=== PATIENT | female | born 2005 | race African-American/Black ===

== ENCOUNTER 2024-04-09 18:06 | Emergency (ER) | payer BC ==
[~2024-04-09] VITALS: Ht 160 cm; Wt 53.8 kg
[2024-04-09] MEDS ORDERED: LAMICTAL100 MG PO (18:52)
[2024-04-09] MEDS ORDERED: PROZAC20 MG (18:52)
[2024-04-09 19:58] LABS: INFLUENZA B NAA NEGATIVE (NEGATIVE); RESPIRATORY SYNCYTIAL VIR NAA NEGATIVE (NEGATIVE)
[2024-04-09] MEDS ORDERED: ZYRTEC10 MG PO (20:12)
[2024-04-09] MEDS ORDERED: FLONASE ALLERG9.9 ML NAS (20:12)
[2024-04-09 20:29] VITALS: BP 106/67
== END 2024-04-09 20:32 | disposition home or self-care (01) ==
LOC: ED 18:06
PROVIDERS: Internal Medicine
DX: R09.82 Postnasal drip (principal); Z79.899 Other long term (current) drug therapy
CPT/HCPCS: 71045; 84703; 87502; 87651; 99283-25; U0002

== ENCOUNTER 2024-04-13 09:18 | Emergency (ER) | payer BC, MEDICAID ==
[~2024-04-13] VITALS: Ht 160 cm; Wt 50.0 kg
[~2024-04-13 09:18] MED LIST: FLONASE ALLERG9.9 ML NAS; LAMICTAL100 MG PO; PROZAC20 MG; ZYRTEC10 MG PO
--- OUTSIDE RECORDS SUMMARY | 2024-04-13 09:25 | XMS ---
PreManage Notification: DANNA DENTON Security Destination Imagination Coordinator Events No recent Security Events currently on file CRITERIA MET - [facility] - 2 Visits in 30 Days CARE PROVIDERS DANE NEIL Nurse Practitioner: Family Current PHONE: Unknown Enrique has no Care Guidelines for this patient. Hemanth VISIT COUNT (12 MO.) 2 [facility] TOTAL 2 NOTE: Visits indicate total known visits. ED/UCC VISIT TRACKING (12 MO.) 04/13/2024 09:19 [facility] [place] TYPE: Emergency COMPLAINT: - COUGH 04/09/2024 18:07 [facility] [place] TYPE: Emergency COMPLAINT: - COUGH DIAGNOSES: - Cough, unspecified - Other assisted (current) drug therapy - Postnasal drip INPATIENT VISIT TRACKING (12 MO.) No inpatient visits to display in this time frame [id number]
[2024-04-13] MEDS ORDERED: ZITHROMAX250 MG PO (12:49)
[2024-04-13 13:05] VITALS: BP 114/87
== END 2024-04-13 13:05 | disposition home or self-care (01) ==
LOC: ED 09:18
DX: J40 Bronchitis, not specified as acute or chronic (principal); Z79.899 Other long term (current) drug therapy
CPT/HCPCS: 99283

== ENCOUNTER 2024-05-18 11:21 | Emergency (ER) | payer OTHER, BC, MEDICAID ==
[~2024-05-18] VITALS: Ht 160 cm; Wt 55.1 kg
[~2024-05-18 11:21] MED LIST changes: +ZITHROMAX250 MG PO
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
[2024-05-18] MEDS ORDERED: LIDOCAINE/RACEPINEP/TETRACAINE 3 ML SYR TOP ONE (12:00)
[2024-05-18 14:01] VITALS: BP 101/78
== END 2024-05-18 14:01 | disposition home or self-care (01) ==
LOC: ED 11:21
DX: S01.551A Open bite of lip, initial encounter (principal); W54.0XXA Bitten by dog, initial encounter; Z79.899 Other long term (current) drug therapy
CPT/HCPCS: 99283

== ENCOUNTER 2024-05-20 22:48 | Emergency (ER) | payer OTHER, BC, MEDICAID ==
[~2024-05-20] VITALS: Ht 160 cm; Wt 55.3 kg
--- OUTSIDE RECORDS SUMMARY | 2024-05-20 22:55 | XMS ---
PreManage Notification: DANNA DENTON Security Call Center Recruiter Events No recent Security Events currently on file CRITERIA MET - 6 ED Visits in 6 Months - [facility] - 2 Visits in 30 Days - [facility] - 3 Facilities in 90 Days CARE PROVIDERS DANE NEIL Nurse Practitioner: Current PHONE: Unknown Enrique has no Care Guidelines for this patient. Hemanth VISIT COUNT (12 MO.) 4 [facility] 1 [facility] 1 [facility] TOTAL 6 NOTE: Visits indicate total known visits. ED/UCC VISIT TRACKING (12 MO.) 05/20/2024 22:49 [facility] [place] TYPE: Emergency COMPLAINT: - WOUND CHECK 05/18/2024 18:40 [facility] [place] TYPE: Emergency DIAGNOSES: - Bitten by dog, subsequent encounter - DOG BITE 05/18/2024 11:22 [facility] [place] TYPE: Emergency COMPLAINT: - DOG BITE DIAGNOSES: - Bitten by dog, initial encounter - Open bite of lip, initial encounter - Other fpc (current) drug therapy 04/30/2024 19:31 [facility] [place] [facility] TYPE: Emergency COMPLAINT: - rib pain DIAGNOSES: [...] or chronic - Nasal congestion - Other fpc (current) drug therapy 04/09/2024 18:07 [facility] [place] TYPE: Emergency COMPLAINT: - COUGH DIAGNOSES: - Cough, unspecified - Other fpc (current) drug therapy - Postnasal drip INPATIENT VISIT TRACKING (12 MO.) No inpatient visits to display in this time frame [email or web address]
[2024-05-20 23:30] VITALS: BP 118/84
[2024-05-20] MEDS ORDERED: AMOXICILLIN/CLAVULANATE K 875 MG HOME.PACK PO ONE (23:30)
== END 2024-05-20 23:30 | disposition home or self-care (01) ==
LOC: ED 22:48
DX: S01.25XD Open bite of nose, subsequent encounter (principal); W54.0XXD Bitten by dog, subsequent encounter
CPT/HCPCS: 12011; 99282-25

== ENCOUNTER 2024-07-22 23:21 | Emergency (ER) | payer BC ==
[~2024-07-22] VITALS: Ht 160 cm; Wt 52.2 kg
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
[2024-07-22] MEDS ORDERED: LACTATED RINGER'S 1,000 ML IV ONE (23:45)
[2024-07-22] MEDS ORDERED: ondansetron HCL 4 MG/2 ML VIAL IV ONE (23:45)
[2024-07-22] MEDS ORDERED: KETOROLAC TROMETHAMINE 15 MG/ML VIAL IV ONE (23:45)
[2024-07-22 23:50] LABS: HEMOGLOBIN 13.4 g/dL (12.0-18.0); RBC 4.42 M/ul (4.3-5.7)
[2024-07-22 23:53] LABS: BASOPHILS 1.6 % (0-2); EOSINOPHILS 1.4 % (0-6); HEMATOCRIT 38.7 % (35.0-50.0); LYMPHOCYTES 37.6 % (24-44); MCH 30.2 (27-36); MCHC 34.5 g/dl (30-36); MCV 87.6 fl (81-99); MONOCYTES 8.4 % (0-12); PLATELET COUNT 285 K/uL (140-440); RDW 13.5 (10.5-15.0)
[2024-07-23 00:15] LABS: ABO A; RH POSITIVE
[2024-07-23 00:28] LABS: ALBUMIN 3.9 g/dL (3.4-5.0); ALBUMIN/GLOBULIN RATIO 1.11 (1.1-2.4); ANION GAP 12.6 (7-21); BILIRUBIN, TOTAL 0.3 ng/dL (0.2-1.0); BUN/CREATININE RATIO 16.39 (6.0-28.6); CALCIUM 9.5 mg/dL (8.5-10.1); CREATININE, SERUM 0.61 mg/dL (0.55-1.02); POTASSIUM 3.6 mmol/L (3.5-5.1); PROTEIN, TOTAL 7.4 g/dL (6.4-8.2)
[2024-07-23] MEDS ORDERED: HYDROCODONE BIT/ACETAMINOPHEN 5/325 MG 1 TAB HOME.PACK PO ONE (01:15)
[2024-07-23] MEDS ORDERED: ONDANSETRON 4 MG HOME.PACK SL ONE (01:15)
[2024-07-23 01:30] VITALS: BP 111/69
== END 2024-07-23 01:30 | disposition home or self-care (01) ==
LOC: ED 23:21
PROVIDERS: Family Medicine
DX: O03.9 Complete or unspecified spontaneous abortion without complication (principal)
CPT/HCPCS: 36415; 76801; 80053; 84702; 85025; 86900; 86901; 96374; 96375; 99284-25; A9270; J1885; J2405; J7121

== ENCOUNTER 2024-09-18 21:07 | Emergency (ER) | payer BC ==
[~2024-09-18] VITALS: Ht 160 cm; Wt 60.1 kg
--- OUTSIDE RECORDS SUMMARY | 2024-09-18 21:14 | XMS ---
PreManage Notification: DANNA DENTON Security Customer Supply Chain Analyst Events No recent Security Events currently on file CRITERIA MET - 6 ED Visits in 6 Months CARE PROVIDERS DANE NEIL Nurse Practitioner: Family Current PHONE: Unknown Enrique has no Care Guidelines for this patient. Hemanth VISIT COUNT (12 MO.) 6 [facility] 1 [facility] [address] [facility] [place] [address] [facility] TOTAL 9 NOTE: Visits indicate total known visits. ED/UCC VISIT TRACKING (12 MO.) 09/18/2024 21:08 [facility] [place] TYPE: Emergency COMPLAINT: - TEST 07/22/2024 23:21 [facility] [place] TYPE: Emergency COMPLAINT: - POSS MISCARIAGE/6 WEEKS DIAGNOSES: - Abnormal uterine and vaginal bleeding, unspecified - Complete or unspecified spontaneous without complication 07/20/2024 20:[address] [facility] [place] TYPE: Emergency DIAGNOSES: - Hemorrhage in early , unspecified - Threatened - vaginal bleeding 05/20/2024 22:49 [facility] [place] TYPE: Emergency COMPLAINT: - WOUND CHECK DIAGNOSES: - Bitten by dog, subsequent encounter - Open bite of nose, subsequent encounter 05/18/2024 18:40 [facility] [place] TYPE: Emergency DIAGNOSES: - Bitten by dog, subsequent encounter - DOG BITE 05/18/2024 11:22 [facility] [place] TYPE: Emergency COMPLAINT: - DOG BITE DIAGNOSES: - Bitten by dog, initial encounter - Open bite of lip, initial encounter - Other manager intermediate (current) drug therapy 04/30/2024 19:31 [facility] [place] OR [facility] TYPE: Emergency COMPLAINT: - rib pain [...] or chronic - Nasal congestion - Other chcf (current) drug therapy 04/09/2024 18:07 [facility] [place] TYPE: Emergency COMPLAINT: - COUGH DIAGNOSES: - Cough, unspecified - Other chcf (current) drug therapy - Postnasal drip INPATIENT VISIT TRACKING (12 MO.) No inpatient visits to display in this time frame [id number]
[2024-09-18] MEDS ORDERED: PRENATAL GUMMI1 EACH PO (21:58)
[2024-09-18 22:02] LABS: BASOPHILS 0.5 % (0-2); HEMATOCRIT 37.3 % (35.0-50.0); HEMOGLOBIN 13.1 g/dL (12.0-18.0); LYMPHOCYTES 30.2 % (24-44); MCH 30.5 (27-36); MCV 87.2 fl (81-99); MONOCYTES 8.7 % (0-12); NEUTROPHILS 59.6 % (39-80); PLATELET COUNT 287 K/uL (140-440); RBC 4.28 M/ul (4.3-5.7); RDW 13.6 (10.5-15.0)
[2024-09-18 22:04] LABS: BILIRUBIN, URINE NEGATIVE (negative); BLOOD/HGB, URINE NEGATIVE (Negative); KETONE, URINE NEGATIVE (Negative); LEUK ESTERASE, URINE NEGATIVE (negative); NITRITE, URINE NEGATIVE (negative)
[2024-09-18] MEDS ORDERED: ondansetron HCL 4 MG/2 ML VIAL IV ONE (22:15)
[2024-09-18 22:24] LABS: ALBUMIN 3.7 g/dL (3.4-5.0); ALBUMIN/GLOBULIN RATIO 1.23 (1.1-2.4); ANION GAP 12.5 (7-21); BILIRUBIN, TOTAL 0.3 mg/dL (0.2-1.0); BUN/CREATININE RATIO 20.28 (6.0-28.6); CALCIUM 9.2 mg/dL (8.5-10.1); CREATININE, SERUM 0.69 mg/dL (0.55-1.02); POTASSIUM 3.5 mmol/L (3.5-5.1); PROTEIN, TOTAL 6.7 g/dL (6.4-8.2)
[2024-09-19 00:40] VITALS: BP 125/72
== END 2024-09-19 00:40 | disposition home or self-care (01) ==
LOC: ED 21:07
PROVIDERS: Internal Medicine
DX: R25.2 Cramp and spasm (principal); Z32.01 Encounter for pregnancy test, result positive; Z79.899 Other long term (current) drug therapy
CPT/HCPCS: 36415; 76801; 76817; 80053; 81003; 83690; 84702; 85025; 96374; 99284-25; J2405

== ENCOUNTER 2024-09-29 19:24 | Emergency (ER) | payer OTHER, BC ==
[~2024-09-29] VITALS: Ht 160 cm; Wt 60.0 kg
[~2024-09-29 19:24] MED LIST changes: +PRENATAL GUMMI1 EACH PO
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
[2024-09-29 19:48] LABS: BASOPHILS 0.6 % (0-2); EOSINOPHILS 1.3 % (0-6); HEMATOCRIT 35.7 % (35.0-50.0); HEMOGLOBIN 12.5 g/dL (12.0-18.0); MCH 30.7 (27-36); MCV 87.5 fl (81-99); MONOCYTES 7.2 % (0-12); NEUTROPHILS 63.9 % (39-80); PLATELET COUNT 300 K/uL (140-440); RBC 4.08 M/ul (4.3-5.7); RDW 13.9 (10.5-15.0)
[2024-09-29 20:10] LABS: BILIRUBIN, URINE NEGATIVE (negative); BLOOD/HGB, URINE NEGATIVE (Negative); KETONE, URINE NEGATIVE (Negative); LEUK ESTERASE, URINE NEGATIVE (negative); NITRITE, URINE NEGATIVE (negative); PH, URINE 5.5 (5-7)
[2024-09-29 20:12] LABS: ABO A; RH POSITIVE
[2024-09-29 20:24] LABS: ANION GAP 14.7 (7-21); BUN/CREATININE RATIO 13.69 (6.0-28.6); CALCIUM 8.8 mg/dL (8.5-10.1); CREATININE, SERUM 0.73 mg/dL (0.55-1.02); POTASSIUM 3.7 mmol/L (3.5-5.1)
[2024-09-29 21:49] VITALS: BP 110/80
== END 2024-09-29 21:50 | disposition home or self-care (01) ==
LOC: ED 19:24
PROVIDERS: Emergency Medicine
DX: O99.891 Other specified diseases and conditions complicating pregnancy (principal); R10.2 Pelvic and perineal pain; Z04.1 Encounter for examination and observation following transport accident; Z3A.01 Less than 8 weeks gestation of pregnancy
CPT/HCPCS: 36415; 76801; 76817; 80048; 81003; 84702; 85025; 86900; 86901; 99284-25

== ENCOUNTER 2024-11-26 11:19 | Emergency (ER) | payer BC, OTHER ==
[~2024-11-26] VITALS: Ht 160 cm; Wt 60.0 kg
[2024-11-26] MEDS ORDERED: SODIUM CHLORIDE 0.9% 500 ML IV PRN (12:00)
[2024-11-26 12:08] LABS: BASOPHILS 0.6 % (0.1-1.2); EOSINOPHILS 0.6 % (0.7-5.8); HEMATOCRIT 36.6 % (34.1-44.9); HEMOGLOBIN 13.1 g/dL (11.2-15.7); LYMPHOCYTES 22.2 % (19.3-51.7); MCH 30.6 PG (25.6-32.2); MCHC 35.8 g/dL (32.2-35.5); MCV 85.5 fL (79.4-94.8); MONOCYTES 6.8 % (4.7-12.5); NEUTROPHILS 69.6 % (34.0-71.1); PLATELET COUNT 279 K/uL (182-369); RBC 4.28 M/uL (3.93-5.22)
[2024-11-26 12:28] LABS: ABO A; RH POSITIVE
[2024-11-26 12:32] LABS: ANION GAP 12.9 (7-21); BUN/CREATININE RATIO 10.16 (6.0-28.6); CALCIUM 9.5 mg/dL (8.5-10.1); CREATININE, SERUM 0.59 mg/dL (0.55-1.02); POTASSIUM 3.9 mmol/L (3.5-5.1)
[2024-11-26 12:41] LABS: BILIRUBIN, URINE NEGATIVE (negative); BLOOD/HGB, URINE NEGATIVE (Negative); KETONE, URINE NEGATIVE (Negative); LEUK ESTERASE, URINE NEGATIVE (negative); NITRITE, URINE NEGATIVE (negative)
[2024-11-26 14:22] VITALS: BP 114/72
== END 2024-11-26 14:22 | disposition home or self-care (01) ==
LOC: ED 11:19
PROVIDERS: Emergency Medicine
DX: O20.9 Hemorrhage in early pregnancy, unspecified (principal); Z3A.13 13 weeks gestation of pregnancy
CPT/HCPCS: 36415; 76802; 80048; 81003; 84702; 85025; 86900; 86901; 99284-25

== ENCOUNTER 2025-01-08 15:21 | Emergency (ER) | payer BC, OTHER ==
[~2025-01-08] VITALS: Ht 160 cm; Wt 54.7 kg
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
[2025-01-08] MEDS ORDERED: AZITHROMYCIN500 MG PO (15:35)
[2025-01-08] MEDS ORDERED: VITAFOL-OB+DHA1 EACH PO (15:35)
[2025-01-08 15:43] LABS: BASOPHILS 0.4 % (0.1-1.2); EOSINOPHILS 0.4 % (0.7-5.8); LYMPHOCYTES 4.4 % (19.3-51.7); MCH 30.6 PG (25.6-32.2); MCHC 35.4 g/dL (32.2-35.5); MCV 86.5 fL (79.4-94.8); MONOCYTES 7.2 % (4.7-12.5); NEUTROPHILS 87.4 % (34.0-71.1); RBC 3.99 M/uL (3.93-5.22)
[2025-01-08 15:55] LABS: ALT (SGPT) 23.0 U/L (14-59); AST (SGOT) 21.0 U/L (15-37); GLOMERULAR FILTRATION RATE,EST 137.0 mL/min (>60); PROTEIN, TOTAL 7.0 g/dL (6.4-8.2); UREA NITROGEN 7.0 mg/dL (7-18)
[2025-01-08] MEDS ORDERED: SODIUM CHLORIDE 0.9% 1,000 ML IV ONE ×2 (16:00→17:45)
[2025-01-08] MEDS ORDERED: ACETAMINOPHEN 500 MG TAB PO ONE (17:00)
[2025-01-08 18:11] LABS: BLOOD/HGB, URINE NEGATIVE (Negative); KETONE, URINE >=80 (Negative); LEUK ESTERASE, URINE NEGATIVE (negative); NITRITE, URINE NEGATIVE (negative)
[2025-01-08 18:29] LABS: LACTIC ACID, BLOOD 0.7 mmol/L (0.4-2.0)
[2025-01-08 19:14] LABS: AMPHETAMINES, URINE NEGATIVE (NEGATIVE); BARBITURATES, URINE NEGATIVE (NEGATIVE); BENZODIAZEPINE, URINE NEGATIVE (NEGATIVE); CANNABINOID, URINE NEGATIVE (NEGATIVE); COCAINE, URINE NEGATIVE (NEGATIVE); ECSTASY, URINE NEGATIVE (NEGATIVE); FENTANYL, URINE NEGATIVE (NEGATIVE); METHADONE, URINE NEGATIVE (NEGATIVE); OPIATES, URINE NEGATIVE (NEGATIVE); OXYCODONE, URINE NEGATIVE (NEGATIVE); PHENCYCLIDINE, URINE NEGATIVE (NEGATIVE)
[2025-01-08 20:20] VITALS: BP 111/72
== END 2025-01-08 20:20 | disposition home or self-care (01) ==
LOC: ED 15:21
PROVIDERS: Emergency Medicine
DX: O99.891 Other specified diseases and conditions complicating pregnancy (principal); O21.9 Vomiting of pregnancy, unspecified; R10.30 Lower abdominal pain, unspecified; Z3A.19 19 weeks gestation of pregnancy; Z79.2 Long term (current) use of antibiotics; Z79.899 Other long term (current) drug therapy
CPT/HCPCS: 36415; 80053; 80307; 81003; 83605; 83690; 84443; 85025; 96361; 96365; 96375; 99284-25; A9270; J0696; J2405; J7030